=== PATIENT | male | born 1995 | race Two or more races ===

== ENCOUNTER 2021-06-08 06:03 | Emergency (ER) | payer MEDICAID, OTHER ==
[~2021-06-08] VITALS: Ht 162.6 cm; Wt 86.4 kg
[2021-06-08] MEDS ORDERED: CETIRIZINE HCL 10 MG TABLET PO ONE (08:00)
[2021-06-08 08:10] LABS: COVID AG,FIA SOURCE NASAL SWAB
[2021-06-08] MEDS ORDERED: ALBUTEROL SULFATE HFA 90 MCG/PUFF 8 GM INHALER IH ONE (08:45)
[2021-06-08 09:45] VITALS: BP 118/71
[2021-06-08] MEDS ORDERED: ALBUTEROL SULFATE 2.5 MG/0.5 ML NEB SOLUTION NEB ONE (09:45)
== END 2021-06-08 11:17 | disposition home or self-care (01) ==
LOC: EMS 06:05
DX: J06.9 Acute upper respiratory infection, unspecified (principal); J30.9 Allergic rhinitis, unspecified; Z20.822 Contact with and (suspected) exposure to COVID-19
CPT/HCPCS: 71045; 93005; 94640; 99285; J3535; J7613

== ENCOUNTER 2023-08-22 17:10 | Emergency (ER) | payer OTHER ==
[~2023-08-22] VITALS: Ht 172.7 cm; Wt 86.0 kg
[2023-08-22 19:13] VITALS: TEMP 98.3
[2023-08-22] MEDS ORDERED: IBUP-1492 PO (23:21)
[2023-08-22] MEDS ORDERED: CEPH-558 PO (23:21)
[2023-08-22] MEDS ORDERED: KETOROLAC TROMETHAMINE 30 MG/ML VIAL IVP ONE (23:30)
[2023-08-22] MEDS ORDERED: CEPHALEXIN MONOHYDRATE 500 MG CAPSULE PO ONE (23:30)
[2023-08-22] MEDS ORDERED: PERTUSS(ACELL),DIPH,TET VAC/PF 0.5 ML SYRINGE IM. ONE (23:30)
[2023-08-23 00:35] VITALS: BP 128/71; PULSE 76; RESP 17
== END 2023-08-23 00:37 | disposition home or self-care (01) ==
LOC: EMS 17:48
DX: S01.511A Laceration without foreign body of lip, initial encounter (principal); X58.XXXA Exposure to other specified factors, initial encounter; Y93.89 Activity, other specified; Y92.89 Other specified places as the place of occurrence of the external cause; Y99.8 Other external cause status
CPT/HCPCS: 99285; 70450; 96374; 70486; 90715; 90471; 12011; J1885